=== PATIENT | male | born 1955 | race Two or more races ===

== ENCOUNTER 2025-04-05 06:36 | Day surgery (SDC) | payer OTHER ==
[2025-04-05] VITALS (7 sets, daily range): BP systolic 122–140; BP diastolic 67–83; PULSE 61–84; RESP 11–17; TEMP 98.7; O2SAT 94–97
[~2025-04-05] VITALS: Ht 182.9 cm; Wt 120.2 kg
[~2025-04-05 06:36] MED LIST: ASPI-498 OR; ATOR-47 PO; CLOP75TA70 PO; HYDR1TAB97 PO; LEVO500T91 PO; LOSA-534 PO; METF-370 PO; TAMS0.4C39 PO
[2025-04-05] MEDS ORDERED: IODIXANOL 320MG/ML 100ML BTL IV ONE (07:26)
[2025-04-05] MEDS ORDERED: LIDOCAINE 2%HCL (LOCAL ANESTH.) INJ 20ML MDV ONE (07:41)
[2025-04-05] MEDS ORDERED: ANGIOMAX 250 MG VIAL IV ONE (07:57)
[2025-04-05] MEDS ORDERED: MIDAZOLAM HCL 2MG/2ML 2ml VIAL (1mg/ml) ONE (07:58)
[2025-04-05] MEDS ORDERED: HEPARIN SODIUM (PORCINE) 5000 UNITS/ML 1ML VIAL ONE (07:58)
[2025-04-05] MEDS ORDERED: VERAPAMIL 2.5MG/ML INJ 2ML VIAL IV ONE (07:58)
[2025-04-05] MEDS ORDERED: SODIUM CHL 0.9% 0 ML ONE (07:58)
[2025-04-05] MEDS ORDERED: methylPREDNISolone SOD SUCC 125 MG/2 ML VL ONE (07:59)
[2025-04-05] MEDS ORDERED: diphenhdrAMINE HCL 50 MG/1 ML VL ONE (07:59)
[2025-04-05] MEDS ORDERED: FAMOTIDINE (10MG/ML) 2ML VL IV ONE (08:00)
[2025-04-05] MEDS ORDERED: fentaNYL CITRATE 100 MCG/2 ML VL ONE (08:04)
--- NOTE | 2025-04-05 08:37 | DVHOP2 ---
Operative Report Operative Report CARDIAC [facility] PROCEDURE REPORT [place], [place] Date of Service: 04/05/25 Rn Primary Care: Hillary Schumacher MD PROCEDURES PERFORMED: Coronary angiogram,conscious sedation administration and supervision, less than 15 minutes; fluoroscopy use and interpretation. PREOPERATIVE DIAGNOSES: Abnormal stress test with CCS class 3 angina, POSTOP DIAGNOSIS: moderate cad, DESCRIPTION OF PROCEDURE: The patient or appropriate family signed informed consent understanding the risks, benefits and alternatives of the procedure, they wished to proceed. The patient was brought to the cardiac research laboratory technician [place]. The patient was prepped in a sterile fashion. Sedation was used per cardiac cath protocol. I administered 2 mL of 2% lidocaine to the right wrist. With an antegrade front wall puncture. I cannulated the right radial artery and placed a 6-[place] Glidesheath slender. Next, an intra-arterial spasmolytic was administered. Next, a - 5French Vestal catheter were used for coronary angiogram a. At the completion of procedure, all guides and wires were removed, and there were no immediate complications. 5000 U of IV heparin given FINDINGS: RCA: Moderate vessel off the right sinus of Valsalva, there is no severe flow limiting stenosis. 30% prox stenosis .mild distal plaque. dominant vessel LEFT MAIN: Moderate size left main, it bifurcates into LAD and circumflex. patent CIRCUMFLEX: Moderate caliber vessel coming off the left main with no flow limiting stenosis. 30% mid CX stenosis. OM3 is moderate vessel with 40% prox stenosis LAD: LAD is a moderate caliber vessel coming of the left main. prox LAD has moderate luminal irregularities. mid to distal LAD has diffuse 30-40% plaque CONCLUSIONS: 1. moderate non critical cad 2. patient can proceed to urology surgery with DR Crane's service PLAN: Aggressive risk factor modification and medical management for the patient. HILLARY SCHUMACHER MD Apr 05, 2025 08:37
== END 2025-04-05 10:55 | disposition home or self-care (01) ==
LOC: CATH 06:36
PROVIDERS: ATTEND Internal Medicine
DX: I25.118 Atherosclerotic heart disease of native coronary artery with other forms of angina pectoris (principal); R94.39 Abnormal result of other cardiovascular function study
CPT/HCPCS: 93454; C1769; C1894; J1200; J1644; J2250; J2919; J3010; J3490; J7030; Q9967; 99152